=== PATIENT | female | born 2000 | race Two or more races ===

== ENCOUNTER 2020-05-16 07:07 | Inpatient (IN) | payer MEDICAID ==
[~2020-05-16] VITALS: Ht 167.6 cm; Wt 69.5 kg
[2020-05-16 07:10] VITALS: BP 146/83
[2020-05-16] MEDS ORDERED: D5%-LACTATED RINGERS 1,000 ML IV SCH (08:00)
[2020-05-16] MEDS ORDERED: CALCIUM CARBONATE 500 MG TAB.CHEW PO PRN (08:00)
[2020-05-16] MEDS ORDERED: OXYTOCIN 30U/ 0.9% NaCL 500ML 500 ML IV PRN (08:00)
[2020-05-16] MEDS ORDERED: ONDANSETRON 2MG/ML, 2ML IVPush PRN (08:00)
[2020-05-16] MEDS ORDERED: TERBUTALINE 1 MG/ML, 1ML SQ PRN (08:00)
[2020-05-16] MEDS ORDERED: TERBUTALINE 1 MG/ML, 1ML IVPush PRN (08:00)
[2020-05-16] MEDS ORDERED: OXYTOCIN 30U/ 0.9% NaCL 500ML 500 ML IV ONE (08:00)
[2020-05-16] MEDS ORDERED: MISOPROSTOL 200 MCG TABLET ONE (08:09)
[2020-05-16] MEDS ORDERED: OXYTOCIN 30U/ 0.9% NaCL 500ML 500 ML ONE (08:09)
[2020-05-16] MEDS ORDERED: LIDOCAINE 1%, 20ML ONE (08:09)
[2020-05-16] MEDS ORDERED: NEWBORN KIT ONE (08:09)
[2020-05-16 08:31] LABS: BASOPHILS % (AUTO) 1 % (0-1); EOSINOPHILS % (AUTO) 1 % (1-7); LYMPHOCYTES % (AUTO) 26 % (22-44); MEAN CORPUSCULAR HEMOGLOBIN 27.3 pg (27.0-34.8); MEAN PLATELET VOLUME 10.4 fL (7.4-10.4); MONOCYTES % (AUTO) 6 % (2-9); NEUTROPHILS % (AUTO) 66 % (42-75); PLATELET COUNT 171 x10^3/uL (130-400); RED CELL DISTRIBUTION WIDTH 14.7 % (9.6-15.2)
[2020-05-16 08:35] LABS: MD NO
[2020-05-16] MEDS ORDERED: FENTANYL PF 100 MCG/2ML ONE ×3 (09:30→12:02)
[2020-05-16] MEDS: LACTATED RINGERS 1,000 ML IV SCH ×4 (09:38→21:30)
[2020-05-16] MEDS: FENTANYL PF 100 MCG/2ML IVPush PRN ×3 (09:40→12:14)
[2020-05-16] MEDS ORDERED: FENTANYL PF 100 MCG/2ML IV PRN (10:00)
[2020-05-16] MEDS ORDERED: FENTANYL/BUPIV./NS/PF 250 ML EPIDCONT ONE (12:02)
[2020-05-16] MEDS ORDERED: LACTATED RINGERS 1,000 ML IVBOLUS PRN (13:30)
[2020-05-16] MEDS ORDERED: FENTANYL/BUPIV./NS/PF 250 ML EPIDCONT SCH (13:30)
[2020-05-16] MEDS ORDERED: EPHEDRINE 50 MG/ML, 1ML IVPush PRN (13:30)
[2020-05-16] MEDS ORDERED: NALOXONE 0.4 MG/ML, 1ML IVPush PRN (13:30)
[2020-05-16] MEDS ORDERED: OXYcodone/APAP 5/325MG TABLET PO PRN (14:30)
[2020-05-16] MEDS ORDERED: DIPH,PERTUSS(ACELL),TET VAC/PF NC IM-VACC PRN (14:30)
[2020-05-16] MEDS: OXYTOCIN 30U/ 0.9% NaCL 500ML 500 ML IV SCH (14:30)
[2020-05-16] MEDS ORDERED: SIMETHICONE 80 MG CHEW TAB PO PRN (14:30)
[2020-05-16] MEDS ORDERED: MAGNESIUM HYDROXIDE 8%, 30ML UDC PO PRN (14:30)
[2020-05-16] MEDS ORDERED: ACETAMINOPHEN 325 MG TABLET PO PRN ×2 (14:30)
[2020-05-16] MEDS ORDERED: RHOGAM FROM BLOOD BANK 1 NOTE EA IM/IV ONE (14:30)
[2020-05-16] MEDS ORDERED: ONDANSETRON 2MG/ML, 2ML IV PRN (14:30)
[2020-05-16] MEDS ORDERED: MISOPROSTOL 200 MCG TABLET PR PRN (14:30)
[2020-05-16] MEDS ORDERED: IBUPROFEN 600 MG TABLET ONE (15:26)
[2020-05-16] MEDS: IBUPROFEN 600 MG TABLET PO PRN ×2 (15:27→23:17)
[2020-05-16 16:25] VITALS: BP 114/58
[2020-05-16 20:30] VITALS: BP 108/71
[2020-05-16 22:22] LABS: BASOPHILS % (AUTO) 0 % (0-1); EOSINOPHILS % (AUTO) 0 % (1-7); LYMPHOCYTES % (AUTO) 15 % (22-44); MD NO; MEAN CORPUSCULAR HEMOGLOBIN 27.3 pg (27.0-34.8); MEAN CORPUSCULAR HGB CONC 32.9 g/dL (32.4-35.8); MEAN PLATELET VOLUME 10.5 fL (7.4-10.4); MONOCYTES % (AUTO) 6 % (2-9); NEUTROPHILS % (AUTO) 79 % (42-75); PLATELET COUNT 161 x10^3/uL (130-400); RED BLOOD COUNT 3.93 x10^6/uL (3.82-5.3); RED CELL DISTRIBUTION WIDTH 14.7 % (9.6-15.2)
[2020-05-16] MEDS: DOCUSATE 100 MG CAPSULE PO PRN (23:17)
[2020-05-17] MEDS: OXYTOCIN 30U/ 0.9% NaCL 500ML 500 ML IV SCH ×3 (00:30→20:30)
[2020-05-17 00:58] VITALS: BP 112/72
[2020-05-17 04:30] VITALS: BP 110/71
[2020-05-17] MEDS: LACTATED RINGERS 1,000 ML IV SCH ×3 (05:30→21:30)
[2020-05-17 07:10] VITALS: BP 116/77
[2020-05-17] MEDS: IBUPROFEN 600 MG TABLET PO PRN ×3 (07:36→23:44)
[2020-05-17] MEDS: PRENATAL VIT/IRON/FA 1 EACH TABLET PO SCH (07:36)
[2020-05-17] MEDS: DOCUSATE 100 MG CAPSULE PO PRN (07:36)
[2020-05-17 12:15] VITALS: BP 113/76
[2020-05-17 20:00] VITALS: BP 110/67
[2020-05-18] MEDS: OXYTOCIN 30U/ 0.9% NaCL 500ML 500 ML IV SCH (05:22)
[2020-05-18] MEDS: LACTATED RINGERS 1,000 ML IV SCH ×2 (05:22→13:30)
[2020-05-18 07:20] VITALS: BP 119/81
[2020-05-18] MEDS: PRENATAL VIT/IRON/FA 1 EACH TABLET PO SCH (07:54)
[2020-05-18] MEDS: IBUPROFEN 600 MG TABLET PO PRN ×2 (07:54→14:22)
[2020-05-18] MEDS: DOCUSATE 100 MG CAPSULE PO PRN (07:54)
[2020-05-18] MEDS: OXYcodone/APAP 5/325MG TABLET PO PRN ×2 (07:55→14:22)
[2020-05-18] MEDS ORDERED: OXYcodone/APAP 5/325MG TABLET ONE (14:20)
== END 2020-05-18 15:20 | disposition home or self-care (01) | DRG 807 ==
LOC: LDOP 07:07 → LDIP 07:35 → 2NW 16:05
PROVIDERS: ADMIT Obstetrics & Gynecology; ATTEND Obstetrics & Gynecology
PROC: 10E0XZZ Delivery of Products of Conception, External Approach (ICD-10-PCS; principal; 2020-05-16)
PROC: 0KQM0ZZ Repair Perineum Muscle, Open Approach (ICD-10-PCS; 2020-05-16)
DX: O70.1 Second degree perineal laceration during delivery (principal); Z37.0 Single live birth; Z3A.38 38 weeks gestation of pregnancy; Z20.828 Contact with and (suspected) exposure to other viral communicable diseases
CPT/HCPCS: 36415; J7121; 85025; 86592; 86850; 86900; 87635; G0378; J3010; J2590; J7120